=== PATIENT | male | born 1975 | race Caucasian/White ===

== ENCOUNTER 2024-08-15 11:16 | Outpatient (AMB) | payer OTHER, SELFPAY ==
--- NOTE | 2024-08-15 11:18 | A.OFFPC_ITS ---
Vital Signs 08/15/24 11:31 08/15/24 12:59 Height 5 ft 6 in Weight 208 lb 6 oz BMI 33.6 BP 158/98 H 160/100 H Blood Pressure Location Lt brachial Lt brachial Position Sitting Sitting Respiration 16 Pulse 74 Pulse Source Pulse Oximeter Temp 98.1 F Temp Source Oral Pulse Oximetry (%) 98 Oxygen Delivery Method Room Air Intake Visit Reasons: Nut Picker Establish Care Intake Note: patient here for [employer] visit Parimutuel Ticket Cashier Required: Yes Parimutuel Ticket Cashier Language: Arabic Parimutuel Ticket Cashier Name: [email or web address] [id number] Accompanied by: Daughter Allergies No Known Allergies Allergy (Verified 08/15/24 11:45) Medication List - Last Reconciled 08/15/24 by Bakari Perdomo CNP amlodipine 5 mg PO QAM lisinopril 10 mg PO QAM Tobacco use date assessed: 08/15/24 Dental Screening Dental Screen Date: 08/15/24 Did you have a dental visit in the last 12 months?: Yes Did you have a dental problem in the last 6 months where you did not have access to dental care?: No Was dental information given to patient?: Patient has dentist HPI HPI Comments History of Present Illness Details New patient Prior PCP:?[facility] Last office visit: 2023 Last CPE: About 8 months ago Acute issue(s): None The patient is a 49-year-old Arabic speaking male presenting with the intention to establish care and address ongoing essential hypertension. He has been previously diagnosed with hypertension and is prescribed amlodipine 5 mg daily and lisinopril 10 mg daily. The patient admits to running out of both medications approximately one week ago, resulting in their discontinuation. He notes that he does not consciously maintain a healthy diet. 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 His blood pressure reading today was 160/100 mmHg. His BMI is reported as 33.6, classified as obese. In regard to vision, he has presbyopia for which reading glasses were prescribed following an eye exam in spring 2023. He generally sleeps well PMHx: HTN, presbyopia SurgHx: None FHx: None SocHx: Nonsmoker. Does not drink alcohol. No recreational drugs Last eye exam was with [facility] in the spring: normal He has never had a colonoscopy He has never been vaccinated for Shingles His last tetanus vaccine is unknown He has not been vaccinated for the flu this season [facility] Medical History (Updated 08/15/24 @ 13:08 by Bakari Perdomo CNP) High blood pressure Social History Housing: House Patient Tobacco Use Status: Never used Tobacco e-Cigarette/Vaping Use: Never Used Second Hand Smoke Exposure: No service: No Current occupational status: employed Current occupation: mag Current occupational exposures/hazards: No Cognitive needs: No Hearing needs: No Vision needs: Yes Questionnaire PHQ-9 Over the last 2 weeks, how often have you been bothered by any of the following problems? 1. Little interest or pleasure in doing things: not at all 2. Feeling down, depressed, or hopeless: not at all 3. Trouble falling or staying asleep, or sleeping too much: not at all 4. Feeling tired or having little energy: not at all 5. Poor appetite or overeating: not at all 6. Feeling bad about yourself - or that you are a failure or have let yourself or your family down: not at all 7. Trouble concentrating on things, such as reading the newspaper or watching television: not at all 8. Moving or speaking so slowly that other people could have noticed. Or the opposite - being so fidgety or restless that you have been moving around a lot more than usual: not at all 9. Thoughts that you would be better off or of hurting yourself in some way: not at all Total score: 0 Depression Screening Interpretation: Negative Depression Screening Done: Yes 34911 - PHQ-9 Billing: Yes Source: Developed by Drs. Graham Butler, Nandini Garcia, Arsenio Olmedo and colleagues, with an educational cely from [employer]. Thrive Questionnaire Date Thrive assessed: 08/15/24 I am a: Patient What is your living situation today?: I have a steady place to live Within the past 12 months, did the food you bought not last and you didn't have the money to get more?: Never true Within the past 12 months, did you worry whether your food would run out before you got money to buy more?: Never true Do you have trouble paying for medicines?: No Do you have trouble getting transportation to medical appointments?: No Do you have trouble paying your heating and electricity bill?: No Do you have trouble taking care of your child, family member or friend?: No Do you have trouble with day-to-day activities such as bathing, preparing meals, shopping, managing finances, etc.?: No Are you currently unemployed and looking for a job?: No Are you interested in more education?: No Please select the resources that you would like help with: None Currently or been in a relationship where the following occur: No concerns reported THRIVE Score: 0 AUDIT C Alcohol Use Questionnaire (AUDIT-C) 1. How often do you have a drink containing alcohol?: Never Total Score: 0 NAZ-7 AMB Questionnaire NAZ-7 Date NAZ - 7 assessed: 08/15/24 Feeling nervous, anxious, or on edge: 0 = Not at all Not being able to stop or control worryin = Not at all Worrying too much about different things: 0 = Not at all Trouble relaxin = Not at all Being so restless that it is hard to sit still: 0 = Not at all Becoming easily annoyed or irritable: 0 = Not at all Feeling afraid as if something awful might happen: 0 = Not at all Total NAZ-7 score (0-4 normal; 5-9 mild; 10-14 moderate; 15-21 severe): 0 Source: Developed by Drs. Graham Butler, Nandini Garcia, Arsenio Olmedo and colleagues, with an educational cely from [employer]. NAZ-7 Assessment Billing NAZ-7 Assessment Tool: NAZ-7 Assessment 97920 Review of Systems Const Details: Const Denies chills, Denies fatigue, Denies fever(s), Denies headache(s) and Denies weakness ENT Denies dizziness and Denies headache(s) Card Denies chest pain, Denies lightheadedness, Denies dyspnea and Denies other (Palpitations) Resp Denies cough, Denies dyspnea, Denies wheezing and Denies other ( shortness of breath) GI Denies abdominal pain, Denies melena, Denies hematochezia, Denies change in bowel habits, Denies dyspepsia and Denies nausea Denies hematuria and Denies dysuria Musc Denies abnormal gait, Denies myalgias, Denies arthralgias, Denies numbness and Denies tingling Skin/Breast Denies rash, Denies unusual bruising and Denies wounds Neuro Denies abnormal gait, Denies dizziness, Denies headache(s), Denies memory loss, Denies numbness, Denies Sensory deficit (Neuro), Denies tingling and Denies weakness Psych Denies anxiety, Denies depression, Denies memory loss Endo Denies cold intolerance, Denies fatigue, Denies heat intolerance, Denies polydipsia and Denies polyuria Aller/Immun Denies wheezing Physical exam (Primary Care) Vital Signs: Last Vital Signs Temp 98.1 F 08/15/24 11:31 Pulse 74 08/15/24 11:31 Resp 16 08/15/24 11:31 BP 158/98 H 08/15/24 11:31 Pulse Ox 98 08/15/24 11:31 Oxygen Delivery Method Room Air 08/15/24 11:31 BMI result Body Mass Index 33.6 Tobacco/Smoking Status: Tobacco use Status Tobacco use date assessed 08/15/24 08/15/24 11:31 Patient Tobacco Use Status Never used Tobacco 08/15/24 11:31 e-Cigarette/Vaping Use Never Used 08/15/24 11:31 PHQ-9: PHQ-9 Score PHQ-9: Total score 0 08/15/24 11:48 Depression Screening Interpretation: Negative Thrive Assessment: Date of Thrive Assessment Date Thrive assessed 08/15/24 08/15/24 11:20 Currently or been in a relationship where the following occur: No concerns reported Const Other: General: no acute distress and well developed Nutritional Appearance: well nourished Orientation/consciousness: patient oriented x3 HENMT Head: Yes normocephalic and Yes atraumatic Eyes General: appearance normal, both eyes and all related structures Pupils: Equal, round and reactive pupils present EOM: EOMs intact bilaterally Resp Effort & Inspection: normal respiratory effort Auscultation: clear to auscultation bilaterally Cardio Rate: regular rate Rhythm: regular rhythm Heart sounds: S1 normal heart sound present, S2 normal heart sound present, no gallops, no murmurs and no rubs GI Palpation (GI): No Abdominal aortic bruit present, Soft to palpation, nontender, No hepatosplenomegaly present and No Rebound tenderness present Auscultation: normal bowel sounds General: Yes no CVA tenderness Back/Spine/Pelvis Back: no CVA tenderness Cervical Spine: cervical ROM normal and No Cervical spine tenderness Thoracic/Lumbar Spine: thoraco-lumbar ROM normal, No pain with thoraco-lumbar ROM, No thoracic spinal tenderness and No lumbar spinal tenderness Extrem General: Yes normal to inspection, No edema and No calf tenderness Skin General: warm and dry. Normal skin color. Normal skin turgor Lesions: no lesions Rashes: no rashes Trauma: no lacerations or abrasions Wounds: no wounds Nails: normal Neuro General: patient oriented x3, gait normal and no focal neuro deficit Cranial nerves: Yes Equal, round and reactive pupils present Cognition (Neuro): normal cognition Gait exam (Neuro): Normal gait present Sensory Exam: No Sensory deficit (Neuro) Psych Appearance: grossly normal Affect: normal affect Attitude: cooperative Thought process: Normal thought process present Immunizations Boostrix Tdap 2.5 Lf unit-8 mcg-5 Lf/0.5 mL intramuscular syringe Performing Provider: Bakari Perdomo CNP Performing Location: [facility] Administered by: Eugenia Akhtar RN on 08/15/24 12:57 Dose Route Admin Location Dispensed Lot Number Expiration Date NDC Dry Room Attendant 0.5 mL IM Left Deltoid 0.5 mL [id number] 06/24/25 63021-970-90 [employer] VIS Given Date VIS Provided VIS Publication Date 08/15/24 Single Vaccine 21 Eligibility Eligibility Date Funding Source Not [facility] Eligible 08/15/24 Private Coding Level of Care Code New Pt Level 4 (68678) Diagnoses High blood pressure I10 Presbyopia H52.4 Obesity (BMI 30-39.9) E66.9 Preventative health care Z00.00 Laboratory tests ordered as part of a complete physical exam (CPE) Z00.00 Additional Codes NAZ-7 Assessment Billing - NAZ-7 Assessment Tool: NAZ-7 Assessment 44445 ([id number]) PHQ-9 - 36907 - PHQ-9 Billing: Yes ([id number]) Assessment & Plan Assessment & Plan (1) High blood pressure: Code(s): I10 - Essential (primary) hypertension Category: Medical Plan: Reinstitute amlodipine 5 mg daily and lisinopril 10 mg daily. Encourage dietary salt reduction and schedule a follow-up in two weeks for blood pressure assessment. Ordered relevant blood work to monitor concurrent conditions. (2) Presbyopia: Code(s): H52.4 - Presbyopia Category: Medical Plan: Confirmed the patient is using prescribed reading glasses as needed. (3) Obesity (BMI 30-39.9): Code(s): E66.9 - Obesity, unspecified Category: Medical Plan: Refer to a heel seat sander or job developer for deaf adults for dietary guidance, which can occur over the phone. (4) Preventative health care: Code(s): Z00.00 - Encounter for general adult medical examination without abnormal findings Category: Medical Plan: Discussed colorectal cancer screening options; ordered Cologuard test per patient preference. Administer tetanus immunization, recommended shingles vaccine and flu vaccine, though the patient declined both vaccines at this time. Will do his complete physical exam after 4 months. (5) Laboratory tests ordered as part of a complete physical exam (CPE): Code(s): Z00.00 - Encounter for general adult medical examination without abnormal findings Category: Medical Plan: Fasting labs ordered as part of a complete physical exam. Advised to fast for at least 10 hours before getting labs drawn. May drink water Verbalized understanding and agreed with treatment plan. Orders: Orders TDaP Immunization Today Z23 - Encounter for immunization Comprehensive [place]. Panel Fast Today Z00.00 - Encounter for general adult medical examination without abnormal findings Lipid Panel Today Z00.00 - Encounter for general adult medical examination without abnormal findings TSH reflex Free T4 Today Z00.00 - Encounter for general adult medical examination without abnormal findings PSA, Ultra Sensitive Today Z00.00 - Encounter for general adult medical examination without abnormal findings Complete Blood Count Auto Diff Today Z00.00 - Encounter for general adult medical examination without abnormal findings Microalbumin, Random (w Creat) Today Z00.00 - Encounter for general adult medical examination without abnormal findings UA CC w/rflx Micro + Cult Today Z00.00 - Encounter for general adult medical examination without abnormal findings Referrals Nutrition/Dietitian Referral E66.9 - Obesity, unspecified Cologuard Test Z12.11 - Encounter for screening for malignant neoplasm of colon, Z12.12 - Encounter for screening for malignant neoplasm of rectum Medications: New lisinopril 10 mg PO QAM 30 days 30 tabs 3RF amlodipine 5 mg PO QAM 30 days 30 tabs 3RF Patient Instructions: During the visit, I discussed with the patient the current management of essential hypertension, including the need for consistent medication adherence and dietary modifications to reduce sodium intake. I addressed the absence of medication intake due to running out and emphasized the importance of refilling prescriptions promptly. We discussed obesity and its implications, notably in the context of hypertension. The patient was encouraged to engage in a job developer for deaf adults consultation to address weight management. For preventative health, I explained colorectal cancer screening options, and he opted for Cologuard instead of colonoscopy. Immunization discussions included tetanus, shingles, and flu vaccines, with consent for tetanus given today. We agreed on a two-week follow-up to reassess blood pressure post-medication resumption. - Resume taking amlodipine 5 mg and lisinopril 10 mg daily as prescribed. - Minimize dietary salt intake and make efforts towards healthier dietary choices. - Follow up in two weeks for blood pressure check. - Complete fasting blood work prior to the follow-up visit, ensuring a 10-12 hour fast. - Await phone contact from a heel seat sander/job developer for deaf adults for dietary planning support. - Submit Cologuard test sample as directed upon receipt. - Return if experiencing concerning symptoms or complications. - Consider shingles and flu vaccinations, available at a local pharmacy if decided later. Patient was informed and verbally consented to the use of an ambient scribe for clinic note documentation during this visit. Interpretation by a professional Arabic audit reviewer.
[2024-08-15 11:31] VITALS: BP 158/98; PULSE 74; RESP 16; TEMP 36.7; O2SAT 98; BMI 33.6
[2024-08-15 12:59] VITALS: BP 160/100
== END 2024-08-15 12:45 | disposition home or self-care (01) ==
PROVIDERS: PCP Nurse Practitioner Family; Visit Provider Nurse Practitioner Family
DX: I10 Essential (primary) hypertension (principal); H52.4 Presbyopia; E66.9 Obesity, unspecified; Z68.33 Body mass index [BMI] 33.0-33.9, adult; Z23 Encounter for immunization

== ENCOUNTER → 2024-08-15 11:16 | Outpatient (BNVA) | payer OTHER, SELFPAY | PROVIDERS: Visit Provider Nurse Practitioner Family | DX: Z00.00 Encounter for general adult medical examination without abnormal findings (principal); Z23 Encounter for immunization; I10 Essential (primary) hypertension; H52.4 Presbyopia; E66.9 Obesity, unspecified; Z68.33 Body mass index [BMI] 33.0-33.9, adult; Z71.3 Dietary counseling and surveillance | CPT/HCPCS: 90471; 90715; 96127; 99202 ==

== ENCOUNTER 2024-08-31 08:30 | Outpatient (AMB) | payer OTHER, SELFPAY ==
--- NOTE | 2024-08-31 08:32 | MHC.PC.OV ---
Vital Signs 08/31/24 08:36 Height 5 ft 6 in Weight 210 lb 6 oz BMI 34.0 BP 150/90 H Blood Pressure Location Rt brachial Position Sitting Respiration 16 Pulse 86 Pulse Source Pulse Oximeter Temp 97.5 F Temp Source Oral Pulse Oximetry (%) 97 Oxygen Delivery Method Room Air Intake Visit Reasons: 2 wks HTN Intake Note: f/u HTN Mental Health Consultant Required: Yes Mental Health Consultant Language: Swazi Mental Health Consultant Name: gilson ([id number]) Allergies No Known Allergies Allergy (Verified 08/31/24 08:43) Medication List - Last Reconciled 08/31/24 by Bakari Perdomo CNP amlodipine 5 mg PO QAM 30 days lisinopril 10 mg PO QAM 30 days Tobacco use date assessed: 08/15/24 Dental Screening Dental Screen Date: 08/15/24 HPI HPI Comments History of Present Illness Details The patient is a 49-year-old Swazi male presenting with essential hypertension. The patient has a history of hypertension and is currently on amlodipine 5 mg and lisinopril 10 mg daily. The blood pressure was measured at 150/90 mmHg during the current visit, which had already been recorded earlier in the day. The patient confirms consistent adherence to the medication regimen and reports taking both medications daily. Although there is an ongoing effort to limit dietary salt intake, the patient's blood pressure remains above the target of less than 140/90 mmHg. The patient denies any recent changes in symptoms or medication side effects. Past management has focused on lifestyle modifications and pharmacologic therapy. Interpretation by a professional Swazi aerial photograph interpreter via electronic tablet. [facility] Medical History (Updated 08/15/24 @ 13:08 by Bakari Perdomo CNP) High blood pressure Social History Housing: House Patient Tobacco Use Status: Never used Tobacco e-Cigarette/Vaping Use: Never Used Second Hand Smoke Exposure: No service: No Current occupational status: employed Current occupation: mag Current occupational exposures/hazards: No Cognitive needs: No Hearing needs: No Vision needs: Yes Questionnaire Thrive Questionnaire Date Thrive assessed: 08/15/24 NAZ-7 AMB Questionnaire NAZ-7 Date NAZ - 7 assessed: 08/15/24 Source: Developed by Drs. Graham Butler, Nandini Garcia, Arsenio Olmedo and colleagues, with an educational cely from [employer]. Review of Systems Const Details: Const Denies chills, Denies fatigue, Denies fever(s), Denies headache(s) and Denies weakness ENT Denies dizziness and Denies headache(s) Card Denies chest pain, Denies lightheadedness, Denies dyspnea and Denies other (Palpitations) Resp Denies cough, Denies dyspnea, Denies wheezing and Denies other ( shortness of breath) GI Denies abdominal pain, Denies melena, Denies hematochezia, Denies change in bowel habits, Denies dyspepsia and Denies nausea Denies hematuria and Denies dysuria Musc Denies abnormal gait, Denies myalgias, Denies arthralgias, Denies numbness and Denies tingling Skin/Breast Denies rash, Denies unusual bruising and Denies wounds Neuro Denies abnormal gait, Denies dizziness, Denies headache(s), Denies memory loss, Denies numbness, Denies Sensory deficit (Neuro), Denies tingling and Denies weakness Psych Denies anxiety, Denies depression, Denies memory loss Endo Denies cold intolerance, Denies fatigue, Denies heat intolerance, Denies polydipsia and Denies polyuria Aller/Immun Denies wheezing Physical exam (Primary Care) Vital Signs: Last Vital Signs Temp 97.5 F 08/31/24 08:36 Pulse 86 08/31/24 08:36 Resp 16 08/31/24 08:36 BP 150/90 H 08/31/24 08:36 Pulse Ox 97 08/31/24 08:36 Oxygen Delivery Method Room Air 08/31/24 08:36 BMI result Body Mass Index 34.0 Tobacco/Smoking Status: Tobacco use Status Tobacco use date assessed 08/15/24 08/31/24 08:39 Patient Tobacco Use Status Never used Tobacco 08/31/24 08:39 e-Cigarette/Vaping Use Never Used 08/31/24 08:39 Thrive Assessment: Date of Thrive Assessment Date Thrive assessed 08/15/24 08/31/24 08:39 Const Other: General: no acute distress and well developed Nutritional Appearance: well nourished Orientation/consciousness: patient oriented x3 HENMT Head: Yes normocephalic and Yes atraumatic Eyes General: appearance normal, both eyes and all related structures Pupils: Equal, round and reactive pupils present EOM: EOMs intact bilaterally Resp Effort & Inspection: normal respiratory effort Auscultation: clear to auscultation bilaterally Cardio Rate: regular rate Rhythm: regular rhythm Heart sounds: S1 normal heart sound present, S2 normal heart sound present, no gallops, no murmurs and no rubs GI Palpation (GI): No Abdominal aortic bruit present, Soft to palpation, nontender, No hepatosplenomegaly present and No Rebound tenderness present Auscultation: normal bowel sounds General: Yes no CVA tenderness Back/Spine/Pelvis Back: no CVA tenderness Cervical Spine: cervical ROM normal and No Cervical spine tenderness Thoracic/Lumbar Spine: thoraco-lumbar ROM normal, No pain with thoraco-lumbar ROM, No thoracic spinal tenderness and No lumbar spinal tenderness Extrem General: Yes normal to inspection, No edema and No calf tenderness Skin General: warm and dry. Normal skin color. Normal skin turgor Lesions: no lesions Rashes: no rashes Trauma: no lacerations or abrasions Wounds: no wounds Nails: normal Neuro General: patient oriented x3, gait normal and no focal neuro deficit Cranial nerves: Yes Equal, round and reactive pupils present Cognition (Neuro): normal cognition Gait exam (Neuro): Normal gait present Sensory Exam: No Sensory deficit (Neuro) Psych Appearance: grossly normal Affect: normal affect Attitude: cooperative Thought process: Normal thought process present Coding Level of Care Code Est Pt Level 3 (77259) Diagnoses High blood pressure I10 Assessment & Plan Assessment & Plan (1) High blood pressure: Code(s): I10 - Essential (primary) hypertension Category: Medical Plan: - Increase Lisinopril to 20 mg daily - Continue amlodipine 5 mg daily. - Reinforce adherence to a low-sodium diet. - Schedule a follow-up appointment in two weeks for blood pressure evaluation and labs. Plan During the visit, I discussed the patient's current treatment regimen for hypertension, which includes amlodipine 5 mg and lisinopril 10 mg daily. Given the current blood pressure readings of 150/90 mmHg, I recommended increasing the lisinopril dosage to 20 mg daily to better control the patient's blood pressure. I also advised maintaining a low-sodium diet as a lifestyle modification. The patient was instructed to continue taking the medications consistently and to return for a follow-up visit in two weeks. The purpose of this follow-up is to reassess blood pressure and review lab results. Additionally, I will monitor the patient's adherence and response to the adjusted treatment plan. Medications: New lisinopril 20 mg PO DAILY 30 days 30 tabs 3RF Discontinued lisinopril Discontinued Reason: Doctor's Order 10 mg PO QAM 30 days 30 tabs 1RF Patient Instructions: - Take lisinopril 20 mg daily. - Continue taking amlodipine 5 mg daily as prescribed. - Maintain a low-sodium diet. - Schedule and attend a follow-up appointment in two weeks. - Complete necessary lab work as advised before leaving today. - He will get his lab work done today and we will review at his next visit. Patient was informed and verbally consented to the use of an ambient scribe for clinic note documentation during this visit.
[2024-08-31 08:36] VITALS: BP 150/90; PULSE 86; RESP 16; TEMP 36.4; O2SAT 97; BMI 34.0
== END 2024-08-31 08:57 | disposition home or self-care (01) ==
LOC: HO.HMCFM 08:30
PROVIDERS: Visit Provider Nurse Practitioner Family
DX: I10 Essential (primary) hypertension (principal)

== ENCOUNTER → 2024-08-31 08:30 | Outpatient (BNVA) | payer OTHER, SELFPAY | PROVIDERS: Visit Provider Nurse Practitioner Family | DX: I10 Essential (primary) hypertension (principal) | CPT/HCPCS: 99212 ==

== ENCOUNTER 2024-08-31 09:00 | Outpatient (REF) | payer OTHER, SELFPAY ==
[2024-08-31 11:25] LABS: MANUAL DIFF FLAG NO
[2024-08-31 11:29] LABS: Appearance Urine Cloudy; Color Urine Yellow; Glucose Urine UA Negative (Negative); Leukocyte Esterase Urine Negative (Negative); Nitrite Urine Negative (Negative); Urine Blood Negative (Negative); Urine Ketones Negative (Negative); Urine Protein Negative (Neg-Trace)
[2024-08-31 11:38] LABS: Basophils Absolute Auto 0.1 X10*3/uL (0.0-0.2); Basophils Percent Auto 0.9 % (0-2); Eosinophils Absolute Auto 0.3 X10*3/uL (0.0-0.4); Hematocrit 41.3 % (42.0-52.0); Hemoglobin 13.9 g/dl (14.0-18.0); Imm Gran Abs Auto 0.02 X10*3/uL (0.00-0.03); Imm Gran Pct Auto 0.3 % (0.0-0.4); Lymphocytes Absolute Auto 2.3 X10*3/uL (1.2-4.9); Lymphocytes Percent Auto 31.4 % (20-40); Mean Corpuscular HGB Conc 33.7 g/dl (31.0-36.0); Mean Corpuscular Hemoglobin 28.1 pg (27.0-33.0); Mean Corpuscular Volume 83.4 fL (80.0-98.0); Mean Platelet Volume 9.6 fL (9.4-12.4); Monocytes Absolute Auto 0.5 X10*3/uL (0.1-1.2); Monocytes Percent Auto 6.3 % (2-11); Neutrophils Absolute Auto 4.3 x10*3/uL (2.0-8.3); Neutrophils Percent Auto 57.1 % (45-73); Platelet Count 299 X10*3/uL (160-400); Red Blood Count 4.95 X10*6/uL (4.60-5.80); Red Cell Distribution Width 12.4 % (11.0-16.0); White Blood Count 7.5 X10*3/uL (4.8-10.8)
[2024-08-31 12:12] LABS: Alanine Aminotransferase 28 U/L (0-40); Albumin Level 4.3 g/dL (3.5-5.0); Alkaline Phosphatase 81 U/L (39-117); Anion Gap 10 (12-20); Aspartate Amino Transferase 30 U/L (5-37); Bilirubin Total 0.6 mg/dL (0.0-1.0); Blood Urea Nitrogen 14 mg/dL (9-16); Calcium 9.2 mg/dL (8.4-10.2); Carbon Dioxide 28 mmol/L (22-29); Chloride 107 mmol/L (96-108); Cholesterol 192 mg/dL (<200); Estimated Glomerular Filt Rate > 60; Glucose Fasting 115 mg/dL (60-99); HDL Cholesterol 61 mg/dL (>40); LDL Cholesterol Calculated 120 mg/dL (<100); Potassium 4.3 mmol/L (3.3-5.1); Sodium 141 mmol/L (135-145); Total Protein 7.4 g/dL (6.5-8.0); Triglycerides 59 mg/dL (<150)
[2024-08-31 12:16] LABS: TSH reflex Free T4 1.29 uIU/mL (0.32-4.0)
[2024-08-31 12:26] LABS: Creatinine Urine 116.62 mg/dL; Microalbum/Creatinine Ratio Ur 11.1 ug/mg cr (<30)
[2024-09-05 21:44] LABS: PSA, Ultra Sensitive 1.12 ng/mL
== END 2024-08-31 09:01 | disposition home or self-care (01) ==
LOC: HO.WFDLDS 09:00
PROVIDERS: Visit Provider Nurse Practitioner Family
DX: Z00.00 Encounter for general adult medical examination without abnormal findings (principal)
CPT/HCPCS: 36415; 80053; 80061; 81003; 82043; 82570; 84153; 84443; 85025

== ENCOUNTER 2024-09-15 15:56 | Outpatient (AMB) | payer OTHER, SELFPAY ==
--- NOTE | 2024-09-15 15:56 | MHC.PC.OV ---
Vital Signs 09/15/24 16:03 09/15/24 16:20 Height 5 ft 6 in Weight 212 lb 4 oz BMI 34.3 BP 142/81 H 140/80 H Blood Pressure Location Rt brachial Rt brachial Position Sitting Sitting Respiration 16 Pulse 85 Pulse Source Pulse Oximeter Temp 97.9 F Temp Source Oral Pulse Oximetry (%) 98 Oxygen Delivery Method Room Air Intake Visit Reasons: fu htn and Lab review Intake Note: patient here for follow up on HTN and lab review Hand Former Required: Yes Hand Former Language: Citizen Of [place] Hand Former Name: Nandini [id number] Information Interpreted: non-clinical & clinical Allergies No Known Allergies Allergy (Verified 09/15/24 16:09) Medication List - Last Reconciled 09/15/24 by Bakari Perdomo CNP amlodipine 5 mg PO QAM 30 days lisinopril 20 mg PO DAILY Tobacco use date assessed: 09/15/24 Dental Screening Dental Screen Date: 09/15/24 Did you have a dental visit in the last 12 months?: Yes Did you have a dental problem in the last 6 months where you did not have access to dental care?: No Was dental information given to patient?: Patient has dentist HPI HPI Comments History of Present Illness Details 49-year-old Citizen Of [place] speaking male presents for hypertension and recent labs review follow-up. He admits to taking his medications as prescribed without adverse reactions. He has been making healthy dietary choices, including low-sodium diet. No acute symptoms at this time. 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 [facility] Medical History (Updated 09/15/24 @ 16:10 by Bakari Perdomo CNP) High blood pressure Social History Housing: House Patient Tobacco Use Status: Never used Tobacco e-Cigarette/Vaping Use: Never Used Second Hand Smoke Exposure: No service: No Current occupational status: employed Current occupation: mag Current occupational exposures/hazards: No Cognitive needs: No Hearing needs: No Vision needs: Yes Questionnaire Thrive Questionnaire Date Thrive assessed: 08/15/24 NAZ-7 AMB Questionnaire NAZ-7 Date NAZ - 7 assessed: 08/15/24 Source: Developed by Drs. Graham Butler, Nandini Garcia, Arsenio Olmedo and colleagues, with an educational cely from [employer]. Review of Systems Const Details: Const Denies chills, Denies fatigue, Denies fever(s), Denies headache(s) and Denies weakness ENT Denies dizziness and Denies headache(s) Card Denies chest pain, Denies lightheadedness, Denies dyspnea and Denies other (Palpitations) Resp Denies cough, Denies dyspnea, Denies wheezing and Denies other ( shortness of breath) GI Denies abdominal pain, Denies melena, Denies hematochezia, Denies change in bowel habits, Denies dyspepsia and Denies nausea Denies hematuria and Denies dysuria Musc Denies abnormal gait, Denies myalgias, Denies arthralgias, Denies numbness and Denies tingling Skin/Breast Denies rash, Denies unusual bruising and Denies wounds Neuro Denies abnormal gait, Denies dizziness, Denies headache(s), Denies memory loss, Denies numbness, Denies Sensory deficit (Neuro), Denies tingling and Denies weakness Psych Denies anxiety, Denies depression, Denies memory loss Endo Denies cold intolerance, Denies fatigue, Denies heat intolerance, Denies polydipsia and Denies polyuria Aller/Immun Denies wheezing Physical exam (Primary Care) Vital Signs: Last Vital Signs Temp 97.9 F 09/15/24 16:03 Pulse 85 09/15/24 16:03 Resp 16 09/15/24 16:03 BP 142/81 H 09/15/24 16:03 Pulse Ox 98 09/15/24 16:03 Oxygen Delivery Method Room Air 09/15/24 16:03 BMI result Body Mass Index 34.3 Tobacco/Smoking Status: Tobacco use Status Tobacco use date assessed 09/15/24 09/15/24 16:06 Patient Tobacco Use Status Never used Tobacco 09/15/24 15:59 e-Cigarette/Vaping Use Never Used 09/15/24 15:59 Thrive Assessment: Date of Thrive Assessment Date Thrive assessed 08/15/24 09/15/24 15:59 Const Other: General: no acute distress and well developed Nutritional Appearance: well nourished Orientation/consciousness: patient oriented x3 HENMT Head: Yes normocephalic and Yes atraumatic Eyes General: appearance normal, both eyes and all related structures Pupils: Equal, round and reactive pupils present EOM: EOMs intact bilaterally Resp Effort & Inspection: normal respiratory effort Auscultation: clear to auscultation bilaterally Cardio Rate: regular rate Rhythm: regular rhythm Heart sounds: S1 normal heart sound present, S2 normal heart sound present, no gallops, no murmurs and no rubs GI Palpation (GI): No Abdominal aortic bruit present, Soft to palpation, nontender, No hepatosplenomegaly present and No Rebound tenderness present Auscultation: normal bowel sounds General: Yes no CVA tenderness Back/Spine/Pelvis Back: no CVA tenderness Cervical Spine: cervical ROM normal and No Cervical spine tenderness Thoracic/Lumbar Spine: thoraco-lumbar ROM normal, No pain with thoraco-lumbar ROM, No thoracic spinal tenderness and No lumbar spinal tenderness Extrem General: Yes normal to inspection, No edema and No calf tenderness Skin General: warm and dry. Normal skin color. Normal skin turgor Lesions: no lesions Rashes: no rashes Trauma: no lacerations or abrasions Wounds: no wounds Nails: normal Neuro General: patient oriented x3, gait normal and no focal neuro deficit Cranial nerves: Yes Equal, round and reactive pupils present Cognition (Neuro): normal cognition Gait exam (Neuro): Normal gait present Sensory Exam: No Sensory deficit (Neuro) Psych Appearance: grossly normal Affect: normal affect Attitude: cooperative Thought process: Normal thought process present Coding Level of Care Code Est Pt Level 4 (35236) Diagnoses High blood pressure I10 Elevated fasting glucose R73.01 Mild anemia D64.9 Elevated LDL cholesterol level E78.00 Assessment & Plan Assessment & Plan (1) High blood pressure: Code(s): I10 - Essential (primary) hypertension Category: Medical Plan: Resting blood pressure is 140/80, slightly above goal of less than 140/90 Will increase lisinopril to 30 mg daily; take as prescribed. Continue to take amlodipine 5 mg daily Low-sodium diet encouraged Follow-up in 2 months for hypertension and labs review or sooner with symptoms or concerns Verbalized understanding and agreed with treatment plan. (2) Elevated fasting glucose: Code(s): R73.01 - Impaired fasting glucose Category: Medical Plan: Recent fasting glucose is elevated, 115. Will recheck fasting glucose and make changes as needed. Advised to fast for 10-12 hours, may drink water, and get blood work done before his next visit. Verbalized understanding and agreed with the plan. (3) Mild anemia: Code(s): D64.9 - Anemia, unspecified Category: Medical Plan: Recent H&H level slightly low, 13.9/41.3. Likely anemia of chronic disease due to hypertension. Will recheck H&H in check iron profile, vitamin B12, folate levels. Will make changes as needed. Verbalized understanding and agreed with the plan. (4) Elevated LDL cholesterol level: Code(s): E78.00 - Pure hypercholesterolemia, unspecified Category: Medical Plan: Recent LDL level is slightly elevated, 120. Advised to limit foods high in saturated fat and avoid foods high in trans fat. Routine exercise encouraged. Will check lipid panel level periodically or if symptomatic. Verbalized understanding and agreed with the plan. Orders: Orders Hemoglobin Today D64.9 - Anemia, unspecified Vitamin B12 and Folate Today D64.9 - Anemia, unspecified Glucose Fasting Today R73.01 - Impaired fasting glucose Hematocrit Today D64.9 - Anemia, unspecified Medications: New lisinopril 30 mg PO DAILY 90 days 90 tabs 1RF Discontinued lisinopril Discontinued Reason: Doctor's Order 20 mg PO DAILY 90 tabs 1RF
[2024-09-15 16:03] VITALS: BP 142/81; PULSE 85; RESP 16; TEMP 36.6; O2SAT 98; BMI 34.3
[2024-09-15 16:20] VITALS: BP 140/80
== END 2024-09-15 16:33 | disposition home or self-care (01) ==
LOC: HO.HMCFM 15:56
PROVIDERS: Visit Provider Nurse Practitioner Family
DX: I10 Essential (primary) hypertension (principal); R73.01 Impaired fasting glucose; D64.9 Anemia, unspecified; E78.00 Pure hypercholesterolemia, unspecified

== ENCOUNTER → 2024-09-15 15:56 | Outpatient (BNVA) | payer OTHER, SELFPAY | PROVIDERS: Visit Provider Nurse Practitioner Family | DX: I10 Essential (primary) hypertension (principal); R73.01 Impaired fasting glucose; D64.9 Anemia, unspecified; E78.00 Pure hypercholesterolemia, unspecified | CPT/HCPCS: 99212 ==